=== PATIENT | male | born 1980 | race Caucasian/White ===

== ENCOUNTER 2022-10-05 17:05 | Emergency (ER) | payer OTHER, SELFPAY ==
--- NOTE | 2022-10-05 17:18 | ED_ITS ---
HPI - Back Pain/Injury General Chief Complaint: Back Pain/Injury <DANIEL Rucker - Last Filed: 10/05/22 17:23> Stated Complaint: back pain <DANIEL Rucker - Last Filed: 10/05/22 17:23> Time Seen by Provider: 10/05/22 18:30 <DANIEL Rucker - Last Filed: 10/05/22 17:23> History of Present Illness HPI Narrative: Patient complains of upper back pain worse with movement for about 2 weeks, he saw his doctor who wrote him for a muscle relaxer, which has not helpe d and pain continues, he has no chest pain no shortness of breath no abdominal pain no nausea or vomiting no radiation of the pain no numbness weakness or tingling, pain is worse with movement relieved with rest, no changes to bowel or bladder <DANIEL Sahu - Last Filed: 10/05/22 18:41> Related Data Home Medications: Previous Rx's Medication Instructions Recorded hydrocodone 5 mg-acetaminophen 325 1 tab PO Q6H PRN pain #14 tabs 10/05/22 mg tablet <DANIEL Rucker - Last Filed: 10/05/22 17:23> Allergies/Adverse Reactions: Allergies Allergy/AdvReac Type Severity Reaction Status Date / Time morphine Allergy Unknown Verified 10/05/22 18:02 tramadol Allergy Unknown Verified 10/05/22 18:02 <DANIEL Rucker - Last Filed: 10/05/22 17:23> [facility] Social History Social History: Social History Advance Directives: No Advance Directives Information Provided: No <DANIEL Rucker Last Filed: 10/05/22 17:23> Physical Exam Vital Signs: Vital Signs: Last Vital Signs Temp 99.2 F 10/05/22 17:19 Pulse 94 10/05/22 17:19 Resp 18 10/05/22 17:19 BP 134/78 10/05/22 17:19 Pulse Ox 97 10/05/22 17:19 O2 Del Method Room Air 10/05/22 17:19 BMI result Body Mass Index 32.1 <DANIEL Rucker Last Filed: 10/05/22 17:23> Vital Signs: Last Vital Signs Temp 99.2 F 10/05/22 17:19 Pulse 94 10/05/22 17:19 Resp 18 10/05/22 17:19 BP 134/78 10/05/22 17:19 Pulse Ox 97 10/05/22 17:19 O2 Del Method Room Air 10/05/22 17:19 BMI result Body Mass Index 32.1 <DANIEL Sahu - Last Filed: 10/05/22 18:41> Course Course Course Narrative: RME--42yo M w/no sig PMHx c/o acute on chronic back pain x1 week. Admits was seen by PCP, prescribed Methocarbamol without relief. Denies injury/trauma or fall, incontinence/retention, fever. No midline spinous tenderness. Bilateral upper thoracic paraspinal tenderness. Ambulating with steady gait Full eval to be performed by main ED provider, patient will need pain control <DANIEL Rucker - Last Filed: 10/05/22 17:23> RME--42yo M w/no sig PMHx c/o acute on chronic back pain x1 week. Admits was seen by PCP, prescribed Methocarbamol without relief. Denies injury/trauma or fall, incontinence/retention, fever. No midline spinous tenderness. Bilateral upper thoracic paraspinal tenderness. Ambulating with steady gait Full eval to be performed by main ED provider, patient will need pain control Patient with easily reproducible by palpation and movement upper subscapular bilateral back pain not associated with chest pain shortness of breath, no neurologic deficits no changes to bowel or bladder, no relief with a muscle relaxer is prescribed analgesic as needed, he did not want a work note, he can easily follow up with his primary doctor if not better next week and is discharged ambulating easily, comfortable diagnosis musculoskeletal upper back pain <DANIEL Sahu - Last Filed: 10/05/22 18:41> Discharge Plan Discharge Clinical Impression: Back pain <DANIEL Rucker - Last Filed: 10/05/22 17:23> Patient Disposition: Home, Self-Care <DANIEL Rucker - Last Filed: 10/05/22 17:23> Additional Instructions: Your pain is likely from inflammation and strain of muscles in her upper back No sign of any dangerous condition now Follow with primary doctor next week if not improved for possible referral for p hysical therapy Return any time for difficulty breathing chest pain abdominal pain vomiting trouble urinating weakness any worse condition or any concerns <DANIEL Rucker - Last Filed: 10/05/22 17:23> Prescriptions: New hydrocodone-acetaminophen 5-325 mg tablet 1 tab PO Q6H PRN (Reason: pain) Qty: 14 0RF Rx Instructions: Partial Fill upon patient request. <DANIEL Rucker - Last Filed: 10/05/22 17:23>
[2022-10-05 17:19] VITALS: BP 134/78; PULSE 94; RESP 18; TEMP 37.3; O2SAT 97; BMI 32.1
== END 2022-10-05 18:49 | disposition home or self-care (01) ==
PROVIDERS: Emergency Provider Emergency Medicine
DX: M54.6 Pain in thoracic spine (principal)
CPT/HCPCS: 99281; 99283

== ENCOUNTER 2022-10-09 15:44 | Emergency (ER) | payer OTHER, SELFPAY ==
[2022-10-09 16:04] VITALS: BP 145/81; PULSE 85; RESP 19; TEMP 36.6; O2SAT 98; BMI 32.1
--- NOTE | 2022-10-09 16:06 | ED.BACK ---
HPI - Back Pain/Injury General Chief Complaint: Back Pain/Injury Stated Complaint: back pain Time Seen by Provider: 10/09/22 16:11 Source: patient Mode of arrival: ambulatory Limitations: no limitations History of Present Illness HPI Narrative: 42 y/o male presents to the ER for evaluation of upper and middle back pains for the last few weeks. He denies any injury. He was seen here for the same 4 days ago. He was prescribed hydrocodone tablets with minimal relief. He also reports previously taking muscle relaxers from his PCP but they didnt help either. He also has been taking tylenol and ibuprofen as well. He states he has been going to work despite the pain and has not had any time to rest. 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 He denies chest pain, SOB, N/V/D or abdominal pain. MD elicited complaint: back pain Pertinent past history: prior back pain Onset (ago): week(s) Timing: constant Severity: moderate Similar Symptoms Previously: Yes Quality: aching Location: right upper back and left upper back Radiation: none Exacerbating factors: movement and lifting Relieving factors: none Context: unknown Associated symptoms: denies other symptoms Treatments prior to arrival: NSAIDS and acetaminophen Related Data Previous Rx's Medication Instructions Recorded hydrocodone 5 mg-acetaminophen 325 1 tab PO Q6H PRN pain #14 tabs 10/05/22 mg tablet cyclobenzaprine 10 mg tablet 10 mg PO TID PRN muscle spasm #14 10/09/22 tabs lidocaine 5 % topical patch 1 patch topical DAILY #15 ea 10/09/22 (Lidoderm) Allergies Allergy/AdvReac Type Severity Reaction Status Date / Time morphine Allergy Unknown Verified 10/09/22 16:04 tramadol Allergy Unknown Verified 10/09/22 16:04 Review of Systems Review of Systems: Yes all other systems are reviewed and are negative PMFSH Social History Social History Advance Directives: No Advance Directives Information Provided: No Physical Exam Vital Signs: Vital Signs: Last Vital Signs Temp 98 F 10/09/22 16:04 Pulse 85 10/09/22 16:04 Resp 19 10/09/22 16:04 BP 145/81 H 10/09/22 16:04 Pulse Ox 98 10/09/22 16:04 O2 Del Method Room Air 10/09/22 16:04 BMI result Body Mass Index 32.1 Appearance: Alert. Oriented X3. No acute distress. HEENT: normal inspection CVS: Normal heart rate and rhythm. Pulses normal. Respiratory: No respiratory distress. Lungs CTAB Back: normal inspection. soft tissue tenderness and spasm of the paraspinous muscles of the throacic area. no midline tenderness Skin: Skin warm and dry. Normal skin color. Normal skin turgor. No rashes. Extremities: normal inspection x4, normal ROM x4 Neuro: Oriented X 3. No motor deficit. No sensory deficit. Medical Decision Making Medical Decision Making [facility] Narrative: 42-year-old male presents the ER for evaluation of upper back pain for the last couple of weeks. Examination is consistent with soft tissue tenderness and palpable spasm. 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 He was counseled on the importance of rest, use of ice and or heat. Will prescribe a new muscle relaxer to try, Lidoderm patches. Also discussed following up with primary care doctor for potential physical therapy and massage. Stable for discharge home. All questions were answered. Differential Diagnosis Differential Diagnoses: The differential diagnosis associated with the presentation includes muscle spasm, muscle pain, inflammatory disorder, malignancy, trauma, osteoporosis, nerve root compression, radiculopathy, plexopathy, degenerative disc disease, disc herniation, spinal stenosis, sacroiliac joint dysfunction, facet joint injury, and less likely infection?like abscess or diskitis External Record Review External record reviewed: Outpatient record, Prior outpatient labs and Prior outpatient radiology Prescription Management I considered prescription management with: Pain Medication and Other (muscle relaxer) Chronic Conditions Patient?s care impacted by: Other (chronic back pain) Critical Care Time Critical Care Time Critical Care Time: No Discharge Plan Discharge Clinical Impression: Thoracic back pain Patient Disposition: Home, Self-Care Instructions: Back Pain (ED) Additional Instructions: Take the prescribed medications as directed Use a heating pad to the area several times per day to the area Recommend gentle massage to the area Continue ibuprofen and tylenol around the clock Follow up with your primary care doctor this week. Prescriptions: New cyclobenzaprine 10 mg tablet 10 mg PO TID PRN (Reason: muscle spasm) Qty: 14 0RF lidocaine [Lidoderm] 5 % adhesive patch,medicated 1 patch topical DAILY Qty: 15 0RF Rx Instructions: leave on most painful area for up to 12 hrs No Action hydrocodone-acetaminophen 5-325 mg tablet 1 tab PO Q6H PRN (Reason: pain) Qty: 14 0RF Rx Instructions: Partial Fill upon patient request. Stand Alone Forms: Work/School Release Interventions: ED Discharge Assessment Last Done: 10/09/22 16:23 Discharge Date/Time: 10/09/22 16:24
== END 2022-10-09 16:24 | disposition home or self-care (01) ==
PROVIDERS: Emergency Provider Emergency Medicine
DX: M54.6 Pain in thoracic spine (principal); Z79.899 Other long term (current) drug therapy
CPT/HCPCS: 99282; 99283